=== PATIENT | female | born 2000 | race Caucasian/White ===

== ENCOUNTER 2019-07-20 18:44 | Observation (INO) ==
--- OUTSIDE RECORDS SUMMARY | 2019-07-20 18:48 | External Medical Summary | Continuity of Care Document ---
:2000 Author Name Darvin Hassan, Provider Address Unavailable Unavailable , Care Team Providers Name Role Phone Unavailable Unavailable Unavailable JUAN DAVID LEPE Unavailable Unavailable Problems Active medical history not documented Allergies and Adverse Reactions Allergy history not documented Medications Medications not documented Procedures Procedures not documented Immunizations Immunizations not documented Plan of Treatment Planned Observations Planned Goals not documented Results No Known Results Results not documented Encounters Appointment; [facility], Nursing Station 02-Feb-2019 13:45 Encounter Diagnosis: Problem not documented
[2019-07-20 20:05] LABS: Basophils # (auto) 0.04 K/uL (0-0.2); Basophils % (auto) 0.4 %; Eosinophils # (auto) 0.17 K/uL (0-0.5); Eosinophils % (auto) 1.8 %; Hematocrit (blood only) 38.2 % (37-47); Hemoglobin 13.6 g/dL (12.0-16.0); Immature Granulocytes # (auto) 0.02 K/uL (0.00-0.02); Immature Granulocytes % (auto) 0.2 %; Lymphocytes % (auto) 35.8 %; Mean Corpuscular Hemoglobin 30.8 pg (25-34); Mean Corpuscular Hgb Conc 35.6 g/dL (32-36); Mean Corpuscular Volume 86.6 fL (80-100); Mean Platelet Volume 10.1 fL (7.4-10.4); Monocytes # (auto) 0.71 K/uL (0.11-0.59); Monocytes % (auto) 7.5 %; Neutrophils # (auto) 5.15 K/uL (1.4-6.5); Neutrophils % (auto) 54.3 %; Platelet Count 268 K/uL (130-400); RDW Coefficient of Variation 12.3 % (11.5-14.5); RDW Standard Deviation 39.2 fL (36.4-46.3); Red Blood Count 4.41 M/uL (4.2-5.4); White Blood Count 9.49 K/uL (4.8-10.8)
[2019-07-20 20:21] LABS: Albumin Level 3.8 gm/dl (3.4-5.0); Appearance Urine Clear (Clear); BUN Creatinine Ratio 14.1 (10-20); Calcium 9.4 mg/dl (8.5-10.1); Color Urine Orange; Est GFR (Non-African American) 106.1; Magnesium 1.9 mg/dl (1.8-2.4); Potassium 3.2 mmol/L (3.5-5.1); Specific Gravity Urine 1.013 (1.000-1.030)
[2019-07-20 20:22] LABS: Protein Urine Negative (Negative)
[2019-07-20 20:24] LABS: Bacteria Urine 2+ (Negative); RBC Urine 0-4 /hpf (0-4); Sulfosalicylic Acid Urine Negative (Negative); WBC Urine >30 /hpf (0-5)
[2019-07-20 20:32] LABS: Albumin Globulin Ratio 1.2 (0.9-2); Bilirubin,Total 0.3 mg/dl (0.2-1); Globulin 3.3 gm/dl (2.5-4.0); Thyroid Stimulating Hormone 1.82 uIu/ml (0.300-4.500); Total Protein 7.1 gm/dl (6.4-8.2)
[2019-07-20] MEDS ORDERED: POTASSIUM CHLORIDE 10 MEQ TABCR PO STA (20:33)
[2019-07-20] MEDS ORDERED: cefTRIAXone SODIUM 2,000 MG/70 ML BAG IV STA (20:33)
[2019-07-20] MEDS ORDERED: CEFEPIME 2,000 MG/20 ML VIAL IV STA (20:55)
[2019-07-20] MEDS ORDERED: SODIUM CHLORIDE 0.9% 1000ML 1,000 ML IV ONE (21:42)
--- NOTE | 2019-07-20 21:54 | History & Physical Report ---
Date of Service July 20, 2019 Assessment & Plan (1) UTI due to extended-spectrum beta lactamase (ESBL) producing Escherichia coli: Review of report brought in by patient from [facility] indicates + urine culture from 06/23 with >100,000 ESBL producing e.coli. WBC normal. Patient is tachycardic at 109. UA clouded by recent Azo use. - discontinued cefepime (beta lactam) in favor of IV ertapenum, 1g, daily given that e.coli are ESBL; would recommended 10-14 day course; consider ID consult for IV to PO conversion in light of most recent culture sensitivity report - bolus 1 L of IV normal saline - urine preg ordered - patient's R flank point tenderness unlikely to represent developing pyleo, but continue to monitor Dispo: Med/Surg FEN/GI: Regular diet DVT ppx: patient is low risk and ambulatory, pharmacologic/mechanical ppx not indicated Code: Full (2) Acute hypokalemia: Level 3.2 on admission; supplemented with 40mEQ of oral KCl -repeat BMP in the AM History of Present Illness Primary Care Provider: NO PCP Dahiana is an otherwise healthy 19 yo woman who came to the ED [facility] for evaluation of recurrent UTI symptoms. She was originally diagnosed with a UTI at [facility] on 05/14; culture grew <10,000 luo sensitive e.coli. She was treated with a 3 day course of Bactrim, which she took until completion. Her sy mptoms improved over the course of the next 4 weeks, although never totally resolved. She returned to [facility] for re-evaluation on 06/23, at which time UA was + and she was treated with a course of Macrobid; culture grew out >100,000 ESBL e.coli; sensitive to gentimycin, cefepime, ertapenum and meropenum. She currently reports burning with urination, but denies urinary frequency, urgency or pain. She has been taking Azo for the urinary discomfort. She did have some vaginal itchiness and white, thick discharge prior to her evaluation at [facility] on 06/23, although these symptoms have since resolved. She is sexually active with 1 male partner. The relationship is monogamous; she is on an OCP for control, but does not use barrier protection. No pain with intercourse. She had a PAP with an endocervical prachi/chlam testing in april that was reportedly normal. Her LMP was 2 weeks ago. ED Course: Urine was unable to be fully analyzed as patient had taken azo prior to coming in for evaluation. UA did show +2 bacteria and >30 WBC. Dahiana was given one dose of IV rocephin and one dose IV cefepime. She was given 40mEq of oral KCl. Allergies Allergy/AdvReac Type Severity Reaction Status Date / Time No Known Allergies Allergy Unverified 07/20/19 21:00 Home Medications Home Medications Medication Instructions Recorded Confirmed Type olwuhli-iirjtajeaupfb-kfhongcv 2 tab PO Q6H PRN 07/20/19 07/20/19 History [Excedrin Extra Strength] dextroamphetamine-amphetamine 30 mg PO BID 07/20/19 07/20/19 History [Adderall] lactobacillus combination no.4 0 mmu cells PO DAILY PRN 07/20/19 07/20/19 History [Probiotic] multivitamin 1 tab PO DAILY 07/20/19 07/20/19 History norgestimate-ethinyl estradiol 1 tab PO DAILY 07/20/19 07/20/19 History [Fqt-Ml-Fliupitwi] pumpkin seed extract-soy germ [Azo 2 cap PO UD 07/20/19 07/20/19 History Bladder Control] Past Med/Surg History Medical History No pertinent past medical history Social History Preferred Language: Belgian Communication Ability: Effective 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 Beliefs That Will Affect Care: None Current Living Situation: Other current occupational status: student Other Information That Helps Us Care for You: No Feels Safe at Home: Yes Safety Concerns: Feels Safe At This Time Smoking Status: Never smoker Hx Alcohol Use: Yes Hx Substance Use: No Do you think of yourself as: straight/heterosexual Sexual Activity: has been sexually active within the last 12 months Review of Systems Constitutional: no fever and no chills Genitourinary: + flank pain (R sided); no dysuria, no urinary frequency, no urinary urgency, no abnormal periods, no vaginal discharge, no vaginal odor, no pelvic pain and no painful intercourse burning with urination Physical Exam Constitutional: WD/WN, vitals as above comfortable Eyes: + anicteric sclerae ENMT: external ear and nose normal, oropharynx normal Neck: trachea midline, no thyromegaly Respiratory: normal respiratory effort, lungs clear to auscultation Auscultation: lungs clear to auscultation bilaterally; no crackles, no rales, no rhonchi, no wheezes and no pleural rub Cardiovascular: Rate/Rhythm: regular rhythm and + tachycardic Heart Sounds: normal S1 and normal S2; no murmur Gastrointestinal (Abdomen): normal bowel sounds, soft, nontender, no hepatosplenomegaly No CVA tenderness b/l, although patient did report point tenderness when R flank was palpated Skin: no rashes, warm and dry Psychiatric: A+Ox3, euthymic affect Results & Data Vital Signs (Past 12 Hours) Vital Signs Temp Pulse Resp BP Pulse Ox 07/20/19 18:47 36.7 C 109 H 14 121/77 98 Laboratory Results 07/20/19 07/20/19 07/20/19 Range/Units 19:49 19:49 19:49 WBC 9.49 (4.8-10.8) K/uL RBC 4.41 (4.2-5.4) M/uL Hgb 13.6 (12.0-16.0) g/dL Hct 38.2 (37-47) % MCV 86.6 (80-100) fL MCH 30.8 (25-34) pg MCHC 35.6 (32-36) g/dL RDW Std Deviation 39.2 (36.4-46.3) fL RDW Coeff of Poonam 12.3 (11.5-14.5) % Plt Count 268 (130-400) K/uL MPV 10.1 (7.4-10.4) fL Immature Gran % (Auto) 0.2 % Neut % (Auto) 54.3 % Lymph % (Auto) 35.8 % [place] % (Auto) 7.5 % Eos % (Auto) 1.8 % Baso % (Auto) 0.4 % Immature Gran # (Auto) 0.02 (0.00-0.02) K/uL Neut # (Auto) 5.15 (1.4-6.5) K/uL Lymph # (Auto) 3.40 (1.2-3.4) K/uL [place] # (Auto) 0.71 H (0.11-0.59) K/uL Eos # (Auto) 0.17 (0-0.5) K/uL Baso # (Auto) 0.04 (0-0.2) K/uL Sodium 139 (136-145) mmol/L Potassium 3.2 L (3.5-5.1) mmol/L Chloride 106 (98-107) mmol/L Carbon Dioxide 27 (21-32) mmol/L Anion Gap 6.0 (3-11) BUN 11 (7-18) mg/dl Creatinine 0.80 (0.6-1.2) mg/dl Est Cr Clr Drug Dosing 105.0 ml/min Est GFR ( Amer) 123.0 Est GFR (Non-Af Amer) 106.1 BUN/Creatinine Ratio 14.1 (10-20) Glucose 89 (70-99) mg/dl Calcium 9.4 (8.5-10.1) mg/dl Magnesium 1.9 (1.8-2.4) mg/dl Total Bilirubin 0.3 (0.2-1) mg/dl AST 19 (15-37) U/L ALT 20 (12-78) U/L Alkaline Phosphatase 48 (45-117) U/L Total Protein 7.1 (6.4-8.2) gm/dl Albumin 3.8 (3.4-5.0) gm/dl Globulin 3.3 (2.5-4.0) gm/dl Albumin/Globulin Ratio 1.2 (0.9-2) TSH 1.820 (0.300-4.500) uIu/ml Urine Color [place] Urine Appearance Clear (Clear) Urine pH (4.5-7.5) Ur Specific [place] 1.013 (1.000-1.030) Urine Protein Negative (Negative) Urine Glucose (UA) (Negative) Urine Ketones (Negative) Urine Blood (Negative) Urine Nitrite (Negative) Urine Bilirubin (Negative) Urine Urobilinogen (Negative) Ur Leukocyte Esterase (Negative) Urine RBC 0-4 (0-4) /hpf Urine WBC >30 H (0-5) /hpf Ur Epithelial Cells 5-10 H (0-5) /lpf Urine Bacteria 2+ H (Negative) Medications Administered Current Inpatient Medications Sodium Chloride (Nss 1000ml) 1,000 mls @ 999 mls/hr IV .Q1H1M ONE Stop: 07/20/19 22:42 Ertapenem 1,000 mg/ Sodium (Chloride) 60 mls @ 100 mls/hr IV Q24H RIVKA Stop: 07/30/19 21:44 Code Status & VTE Plan VTE Prophylaxis Plan VTE Prophylaxis will be ordered: No Supervising Physician Co-Signing Physician Notes Patient was seen and examined by me personally. I reviewed the chart, the order s and discussed the case in detail with Dr. Twyla Johnson MD . I read this H&P and agree with its contents to entirety. PG Care Time/CCT Total # of Minutes Spent Total Time Spent with Patient: Total time spent is greater than 50% in coordination of care (as documented) at patient's floor/unit and/or counseling patient: Resident Activity Tracking Resident Involvement: Resident Care Provided Care Provided: Adult Hospital Medicine
[2019-07-20] MEDS: ERTAPENEM SODIUM 1,000 MG in SODIUM CHLORIDE 0.9% 50 ML IV SCH (22:14)
[2019-07-20] MEDS ORDERED: ACETAMINOPHEN 325 MG TAB PO PRN (23:02)
[2019-07-20] MEDS ORDERED: [UNRECOGNIZED DRUG - OTHER] PO SCH (23:02)
--- NOTE | 2019-07-20 23:26 | Emergency Department Note ---
Entered by Brandy Jimenes acting as a scribe for Saman Penny MD History of Present Illness General Chief complaint: Urinary Symptoms Stated complaint: recurrent uti, antibiotic taken-not working Time Seen by Provider: 07/20/19 19:25 Source: patient History of Present Illness Onset (ago): month(s) (05/13/19) 2 Location: pelvis (urinary symptoms) Pain Consistency: + intermittent Maximum Pain Intensity: 4 Quality: + burning (dysuria) and + other (itching) Associated symptoms: + denies other symptoms (vomiting, ), + cough (mild), + headaches and + other (nausea, weight loss, chills, body aches, shaking, blurred vision, feeling like she is going to pass out); no chest pain The patient is a 19 year old female with no PMHx indicated on [employer] who presents to the Emergency Room with complaints of urinary symptoms. The patient explains that at the end of April 2019 she began to experience UTI symptoms including dysuria and frequency. She was seen by a doctor on May 13 and was prescribed Bactrim with some relief. However, she states that her UTI symptoms shortly returned along with new symptoms including bad headaches, body aches, shaking, blurred vision, chills, intermittent abdominal pain and pressure, and feeling like she is going to pass out at times. These symptoms are cyclical and states that she does not have them right now. Very symptoms currently. She returned to the doctor on 06/23/19 and was placed on Macrobid. Since this time, she reports that her symptoms have been intermittent and she states that she noticed she lost 10 lbs in under 1 month. She reports that she takes Excedrin for her headaches and Azo for her UTI symptoms. The patient explains that her UTI symptoms worsened 3 days ago associated with lower back pain prompting her ED visit today. Additionally she includes that she has also been experiencing nausea and a mild cough. Of note, the patient states that her menstrual periods are normal. She also notes that her mother has thyroid problems. She denies vomiting, chest pain, shortness of breath, chance of , and noticeable swelling. The patient offers no additional complaints at this time. Home Medications Home Medications Medication Instructions Recorded Confirmed Type ahxhyet-aifgntobhzshz-iljrliva 2 tab PO Q6H PRN 07/20/19 07/20/19 History [Excedrin Extra Strength] dextroamphetamine-amphetamine 30 mg PO BID 07/20/19 07/20/19 History [Adderall] lactobacillus combination no.4 0 mmu cells PO DAILY PRN 07/20/19 07/20/19 History [Probiotic] multivitamin 1 tab PO DAILY 07/20/19 07/20/19 History norgestimate-ethinyl estradiol 1 tab PO DAILY 07/20/19 07/20/19 History [Fxo-Lh-Mnbkgdqbh] pumpkin seed extract-soy germ [Azo 2 cap PO UD 07/20/19 07/20/19 History Bladder Control] Allergies Allergy/AdvReac Type Severity Reaction Status Date / Time No Known Allergies Allergy Unverified 07/20/19 21:00 Past Med/Surg History Medical History No pertinent past medical history Social History Preferred Language: French Communication Ability: Effective Credit Consultant Required: No Beliefs That Will Affect Care: None Current Living Situation: Other current occupational status: student Other Information That Helps Us Care for You: No Feels Safe at Home: Yes Safety Concerns: Feels Safe At This Time Smoking Status: Never smoker Hx Alcohol Use: Yes Hx Substance Use: No Do you think of yourself as: straight/heterosexual Sexual Activity: has been sexually active within the last 12 months Review of Systems See HPI for pertinent positives & negatives. and A total of 10 systems reviewed and were otherwise negative Physical Exam Vital Signs Vital Signs - 24 hr 07/20/19 18:47 07/20/19 20:02 Temperature 36.7 C Temperature Source Oral Sepsis Recent Fever Within 48 Hours No Sepsis New/Unexplained Change in Mental Status No Sepsis Action Taken by Nursing No Action Required Pulse Rate - Lying 66 Pulse Rate - Sitting 76 Pulse Rate - Standing 85 Pulse Rate 109 H Respiratory Rate 14 Respiratory Depth Normal Blood Pressure - Lying 115/62 Blood Pressure - Sitting 114/74 Blood Pressure- Standing 111/74 Blood Pressure 121/77 Blood Pressure Mean 91 Pulse Oximetry 98 Oxygen Delivery Method Room Air Constitutional: Vital signs reviewed. Eyes: Pupils are equal round reactive to light. Conjunctiva are noninjected. ENT: Pharynx is clear without erythema or exudate. Mucous membranes are moist. Neck supple without meningeal signs. No goiter. Respiratory: Clear to auscultation bilaterally. Breath sounds are equal bilaterally. Cardiovascular: Regular rate and rhythm. No rubs or gallops. GI: Soft, nondistended and nontender. Bowel sounds are present. Musculoskeletal: No peripheral edema. No lower extremity tenderness. No CVA tenderness. Integumentary: No cyanosis. Neurological: The patient is awake and alert. No focal deficits. Psychiatric: Normal affect. Course 1932: Past medical records reviewed. The patient was evaluated in room B06. A complete history and physical exam was performed. 2036: Spoke to patient about test results. 2053: Spoke with Dr. Byers. Infectious Disease who said there is no oral treatment option and that the patient should be admitted. 2105: Spoke with Dr. Almazan, [facility] who will evaluate the patient. I spoke to the patient about culture results and admission. 2109: The patient verbally expressed understanding and agreement of the treatment plan. The patient will be evaluated for further treatment. Administered Medications Ertapenem 1,000 mg/ Sodium (Chloride) 60 mls @ 100 mls/hr IV Q24H RIVKA Stop: 07/30/19 21:44 Last Admin: 07/20/19 22:14 Dose: 100 mls/hr Documented by: [id number] Discontinued Medications Ceftriaxone Sodium (Rocephin) 2,000 mg in 70 mls @ 140 mls/hr IV NOW STA Stop: 07/20/19 21:02 Last Admin: 07/20/19 20:58 Dose: Not Given Documented by: [id number] Cefepime HCl (Maxipime) 2,000 mg in 20 mls @ 5 mls/min IV NOW STA; Protocol Stop: 07/20/19 20:58 Last Admin: 07/20/19 21:10 Dose: 5 mls/min Documented by: [id number] Sodium Chloride (Nss 1000ml) 1,000 mls @ 999 mls/hr IV .Q1H1M ONE Stop: 07/20/19 22:42 Last Admin: 07/20/19 22:18 Dose: 999 mls/hr Documented by: [id number] Potassium Chloride (Klor-Con M10) 40 meq PO NOW STA Stop: 07/20/19 20:34 Last Admin: 07/20/19 21:10 Dose: 40 meq Documented by: [id number] Medical Decision Making Differential Diagnosis Differential diagnosis includes but is not limited to UTI, pyelonephritis, metabolic derangement, hyperthyroidism, anemia Medical Records Attestation: I reviewed the patient's medical records. I did perform a limited focused review of portions of the patient's old chart on the electronic medical record. The patient has had no recent pertinent visits to this hospital. Home Medications Current Medication List: was personally reviewed by me Laboratory Data Attestation: I reviewed the patient's lab results. Result diagrams: 07/20/19 19:49 07/20/19 19:49 Lab Results 07/20/19 07/20/19 07/20/19 Range/Units 19:49 19:49 19:49 WBC 9.49 (4.8-10.8) K/uL RBC 4.41 (4.2-5.4) M/uL Hgb 13.6 (12.0-16.0) g/dL Hct 38.2 (37-47) % MCV 86.6 (80-100) fL MCH 30.8 (25-34) pg MCHC 35.6 (32-36) g/dL RDW Std Deviation 39.2 (36.4-46.3) fL RDW Coeff of Poonam 12.3 (11.5-14.5) % Plt Count 268 (130-400) K/uL MPV 10.1 (7.4-10.4) fL Immature Gran % (Auto) 0.2 % Neut % (Auto) 54.3 % Lymph % (Auto) 35.8 % [place] % (Auto) 7.5 % Eos % (Auto) 1.8 % Baso % (Auto) 0.4 % Immature Gran # (Auto) 0.02 (0.00-0.02) K/uL Neut # (Auto) 5.15 (1.4-6.5) K/uL Lymph # (Auto) 3.40 (1.2-3.4) K/uL [place] # (Auto) 0.71 H (0.11-0.59) K/uL Eos # (Auto) 0.17 (0-0.5) K/uL Baso # (Auto) 0.04 (0-0.2) K/uL Sodium 139 (136-145) mmol/L Potassium 3.2 L (3.5-5.1) mmol/L Chloride 106 (98-107) mmol/L Carbon Dioxide 27 (21-32) mmol/L Anion Gap 6.0 (3-11) BUN 11 (7-18) mg/dl Creatinine 0.80 (0.6-1.2) mg/dl Est Cr Clr Drug Dosing 105.0 ml/min Est GFR ( Amer) 123.0 Est GFR (Non-Af Amer) 106.1 BUN/Creatinine Ratio 14.1 (10-20) Glucose 89 (70-99) mg/dl Calcium 9.4 (8.5-10.1) mg/dl Magnesium 1.9 (1.8-2.4) mg/dl Total Bilirubin 0.3 (0.2-1) mg/dl AST 19 (15-37) U/L ALT 20 (12-78) U/L Alkaline Phosphatase 48 (45-117) U/L Total Protein 7.1 (6.4-8.2) gm/dl Albumin 3.8 (3.4-5.0) gm/dl Globulin 3.3 (2.5-4.0) gm/dl Albumin/Globulin Ratio 1.2 (0.9-2) TSH 1.820 (0.300-4.500) uIu/ml Urine Color [place] Urine Appearance Clear (Clear) Urine pH (4.5-7.5) Ur Specific [place] 1.013 (1.000-1.030) Urine Protein Negative (Negative) Urine Glucose (UA) (Negative) Urine Ketones (Negative) Urine Blood (Negative) Urine Nitrite (Negative) Urine Bilirubin (Negative) Urine Urobilinogen (Negative) Ur Leukocyte Esterase (Negative) Urine RBC 0-4 (0-4) /hpf Urine WBC >30 H (0-5) /hpf Ur Epithelial Cells 5-10 H (0-5) /lpf Urine Bacteria 2+ H (Negative) Blood Pressure Blood Pressure Findings: Elevated blood pressure Blood Pressure Disposition: elevated BP felt to be situational MDM Narrative I did evaluate the patient as noted above. The patient is presenting with urinary symptoms. She has had 2 courses of antibiotics including Macrobid and Bactrim. She has recurring urinary symptoms and has cyclical systemic symptoms as described above including malaise, headaches, dizziness and weight loss. IV access was established. I did order a urine analysis. She does have a significant number of WBCs and bacteria. The rest of the UA is uninterpretable due to her taking Azo. I did order and review the patient's blood work as noted in the electronic medical record. Her white count is not elevated. She is not anemic. She is hypokalemic. She was given oral potassium. TSH is normal. Originally my plan was to treat her with ceftriaxone and Omnicef. I had discussed this with our ED pharmacist here. After discussion with her, she told me that cultures were performed at [facility]. I therefore obtain cultures from the [facility] and her initial culture grew out E. coli which was pansensitive. Her second culture from June 23 showed E. coli ESBL. I did speak to the pharmacist as well as Dr. Byers of infectious disease. She stated that we would have to hospitalize her for IV antibiotics as there is no oral option. I did discuss this with the patient. She was agreeable to hospitalization. I did treat her with cefepime based on her culture. I did discuss case with the hospitalist and case management associate. Impression & Plan Headache, Unintentional weight loss, Acute hypokalemia, Dizziness, UTI due to extended-spectrum beta lactamase (ESBL) producing Escherichia coli Discharge Plan Visit Data *Final* Discharge Date/Time: 07/20/19 22:18 Chief Complaint: Urinary Symptoms Stated Complaint: recurrent uti, antibiotic taken-not working ED Provider: Saman Penny Discharge Problem: Headache, Unintentional weight loss, Acute hypokalemia, Dizziness, UTI due to extended-spectrum beta lactamase (ESBL) producing Escherichia coli Patient Disposition: Being Evaluated by Hospitalist Discharge Instructions Interventions: ED Discharge Assessment Last Done: 07/20/19 22:18 Discharge Problem: Headache Qualifiers: Headache type: unspecified Headache chronicity pattern: episodic headache Intractability: not intractable Qualified Code(s): R51 - Headache The scribe's documentation has been prepared under my direction and personally reviewed by me in its entirety. I confirm that the note above accurately reflects all work, treatment, procedures, and medical decision making performed by me.
[2019-07-21 05:23] LABS: Basophils # (auto) 0.04 K/uL (0-0.2); Basophils % (auto) 0.5 %; Eosinophils # (auto) 0.17 K/uL (0-0.5); Hematocrit (blood only) 39.2 % (37-47); Hemoglobin 13.5 g/dL (12.0-16.0); Immature Granulocytes # (auto) 0.01 K/uL (0.00-0.02); Immature Granulocytes % (auto) 0.1 %; Lymphocytes # (auto) 3.12 K/uL (1.2-3.4); Lymphocytes % (auto) 35.9 %; Mean Corpuscular Hemoglobin 30.3 pg (25-34); Mean Corpuscular Hgb Conc 34.4 g/dL (32-36); Mean Corpuscular Volume 88.1 fL (80-100); Mean Platelet Volume 10.6 fL (7.4-10.4); Monocytes # (auto) 0.73 K/uL (0.11-0.59); Monocytes % (auto) 8.4 %; Neutrophils # (auto) 4.62 K/uL (1.4-6.5); Neutrophils % (auto) 53.1 %; Platelet Count 267 K/uL (130-400); RDW Coefficient of Variation 12.3 % (11.5-14.5); RDW Standard Deviation 39.5 fL (36.4-46.3); Red Blood Count 4.45 M/uL (4.2-5.4); White Blood Count 8.69 K/uL (4.8-10.8)
[2019-07-21 06:12] LABS: BUN Creatinine Ratio 13.5 (10-20); Calcium 8.9 mg/dl (8.5-10.1); Est GFR (Non-African American) 100.1
--- NOTE | 2019-07-21 15:13 | Hospitalist Progress Note ---
Date of Service July 21, 2019 Assessment & Plan (1) UTI due to extended-spectrum beta lactamase (ESBL) producing Escherichia coli: Continue ertapenem. Urine culture pending sensitivity. Positive for E. coli ESBL. Will do renal sonogram to rule out possibly kidney stone or other infection that would cause recurrent urinary tract infections. Present on Admission?: Yes (2) Acute hypokalemia: Resolved Present on Admission?: Yes Subjective Patient seen and examined at the bedside. She says she feels better today and less dysuria. She reports having recurrent urinary tract infections for the past 6 months and she does not know the reason why. This time she grew ESBL E. coli she was started on ertapenem. Patient denies fever, chills, chest pain, shortness of breath, abdominal pain, frequency urgency. Review of Systems Review of Systems: All systems reviewed & are unremarkable except as noted in HPI & below Physical Exam Constitutional: WD/WN, vitals as above well developed Eyes: PERRL, conjunctivae normal, anicteric sclerae ENMT: external ear and nose normal, oropharynx normal Neck: trachea midline, no thyromegaly Respiratory: normal respiratory effort, lungs clear to auscultation Cardiovascular: RRR, no murmur, no edema Gastrointestinal (Abdomen): normal bowel sounds, soft, nontender, no hepatosplenomegaly Musculoskeletal: no cyanosis or clubbing, extremities motor strength 5/5 Skin: no rashes, warm and dry Neurologic: patellar DTR's 2+ bilat, sensation intact Psychiatric: A+Ox3, euthymic affect Lymphatic: no cervical or axillary lymphadenopathy Results & Data Vital Signs (Past 12 Hours) Vital Signs Temp Pulse Resp BP Pulse Ox 07/21/19 07:23 36.9 C 70 16 113/69 97 PG Care Time/CCT Total # of Minutes Spent Total Time Spent with Patient: Total time spent is greater than 50% in coordination of care (as documented) at patient's floor/unit and/or counseling patient:
--- NOTE | 2019-07-21 17:34 | Ultrasound Report ---
US renal/blad retro comp HISTORY: Infection. Flank pain. recurrent UTI COMPARISON: None. FINDINGS: Right kidney: Maximum dimension 11.9 cm. No evidence for hydronephrosis. Normal corticomedullary diff erentiation and cortical thickness. Left kidney: Maximum dimension 11.2 cm. No evidence for hydronephrosis. Normal corticomedullary diff erentiation and cortical thickness. Bladder: No bladder wall thickening. The bilateral ureteral jets were identified. IMPRESSION: Normal renal ultrasound. The above report was generated using voice recognition software. It may contain grammatical, syntax or spelling errors. Electronically signed by: Jas Alvares M.D. 07/21/2019 5:33 PM
[2019-07-21] MEDS: ERTAPENEM SODIUM 1,000 MG in SODIUM CHLORIDE 0.9% 50 ML IV SCH (21:07)
[2019-07-22] MEDS ORDERED: CLOTRIMAZOLE VAGINAL CR 7 APPLN/45 GM TUBE PV SCH (09:00)
[2019-07-22] MEDS: LACTOBACILLUS ACIDOPHILUS (FLORANEX) TAB PO SCH ×2 (09:43→11:48)
[2019-07-22] MEDS ORDERED: Nursing to Pharmacy Communication ONE (09:56)
[2019-07-22] MEDS ORDERED: ERTAPENEM SODIUM 1,000 MG in SODIUM CHLORIDE 0.9% 50 ML IV SCH ×2 (10:15→22:00)
--- NOTE | 2019-07-22 13:03 | Infectious Disease Consult ---
Date of Consultation July 22, 2019 Assessment & Plan (1) Acute UTI: Patient with urinary tract infection, now with fully sensitive E. coli, worry about possibility of right pyelonephritis given flank pain and systemic symptoms. Have ordered CT scan of the abdomen and pelvis with IV contrast to better define process. As long as no significant complicating things are seen on CT scan, feel the patient could be discharged on oral antibiotics and would recommend cefdinir 300 mg twice daily for at least 2 to [address] findings. Would like to see patient back in the office in 1 to 2 weeks and follow-up if possible. Case discussed at length with patient and her mother and they appeared satisfied with this approach. If symptoms were to recur after treatment, will need urologic follow-up to evaluate for possible anatomic problems. (2) Escherichia coli infection: History of Present Illness Reason for Consultation: E. coli ESBL Attending Physician: Celso Torres MD History of Present Illness 19-year-old female in prior good health who first developed symptoms of lower urinary tract infection with dysuria, frequency, and urgency at the end of April. She was seen at a walk-in clinic and diagnosed with a E. coli urinary tract infection and given 3-day course of Bactrim. Symptoms improved, but then returned. She subsequent was found to have a resistant E. coli and given 7 days of Macrodantin, but has continued to complain of lower urinary tract symptoms, associated with intermittent right flank pain, with shaking chills, headache, and ill feeling. She finally was admitted to the hospital and now found to have positive culture for a fully sensitive E. coli. She has been on IV cefepime with clinical improvement. She has had ultrasound which was unremarkable. No prior history of urinary tract infections, no history of kidney stones. Patient is sexually active. Allergies Allergy/AdvReac Type Severity Reaction Status Date / Time No Known Allergies Allergy Unverified 07/20/19 21:00 Home Medications Home Medications Medication Instructions Recorded Confirmed Type jjksuxd-ducxexihnezyq-syewfpia 2 tab PO Q6H PRN 07/20/19 07/20/19 History [Excedrin Extra Strength] dextroamphetamine-amphetamine 30 mg PO BID 07/20/19 07/20/19 History [Adderall] lactobacillus combination no.4 0 mmu cells PO DAILY PRN 07/20/19 07/20/19 History [Probiotic] multivitamin 1 tab PO DAILY 07/20/19 07/20/19 History norgestimate-ethinyl estradiol 1 tab PO DAILY 07/20/19 07/20/19 History [Dlv-Fg-Oigqrkqsm] pumpkin seed extract-soy germ [Azo 2 cap PO UD 07/20/19 07/20/19 History Bladder Control] Patient History Medical History No pertinent past medical history Social History Preferred Language: Malawian Communication Ability: Effective 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 Beliefs That Will Affect Care: None Current Living Situation: Other current occupational status: student Other Information That Helps Us Care for You: No Feels Safe at Home: Yes Safety Concerns: Feels Safe At This Time Smoking Status: Never smoker Hx Alcohol Use: Yes Hx Substance Use: No Do you think of yourself as: straight/heterosexual Sexual Activity: has been sexually active within the last 12 months Review of Systems Review of Systems: All systems reviewed & are unremarkable except as noted in HPI & below Physical Exam Constitutional: WD/WN, vitals as above comfortable; no acute distress Eyes: PERRL, conjunctivae normal, anicteric sclerae ENMT: external ear and nose normal, oropharynx normal Neck: trachea midline, no thyromegaly neck nontender Respiratory: normal respiratory effort, lungs clear to auscultation normal percussion; does not use accessory muscles Cardiovascular: Rate/Rhythm: regular rate and regular rhythm Heart Sounds: normal S1 and normal S2; no gallop, no murmur and no cardiac rub Vessels: normal peripheral pulses; no JVD Gastrointestinal (Abdomen): Inspection/Auscultation: abdomen normal to inspection and normal bowel sounds Percussion/Palpation: + abdomen tender (Mild right CVAT); no hepatosplenomegaly and no abdominal mass Musculoskeletal: no cyanosis or clubbing, extremities motor strength 5/5 Spine: thoracic spine normal to inspection and lumbar spine normal to inspection; no cervical spinal tenderness Skin: no rashes, warm and dry normal turgor; no lesions Neurologic: patellar DTR's 2+ bilat, sensation intact no focal motor deficits Psychiatric: A+Ox3, euthymic affect Orientation: cooperative Lymphatic: no cervical or axillary lymphadenopathy no inguinal lymphadenopathy Results & Data Vital Signs (Past 12 Hours) Vital Signs Temp Pulse Resp BP Pulse Ox 07/22/19 07:15 36.6 C 74 16 99/64 L 98 Laboratory Results Laboratory Results - last 48 hr 07/20/19 07/20/19 07/20/19 19:49 19:49 19:49 WBC 9.49 RBC 4.41 Hgb 13.6 Hct 38.2 MCV 86.6 MCH 30.8 MCHC 35.6 RDW Std Deviation 39.2 RDW Coeff of [place] 12.3 Plt Count 268 MPV 10.1 Immature Gran % (Auto) 0.2 Neut % (Auto) 54.3 Lymph % (Auto) 35.8 [place] % (Auto) 7.5 Eos % (Auto) 1.8 Baso % (Auto) 0.4 Immature Gran # (Auto) 0.02 Neut # (Auto) 5.15 Lymph # (Auto) 3.40 [place] # (Auto) 0.71 H Eos # (Auto) 0.17 Baso # (Auto) 0.04 Sodium 139 Potassium 3.2 L Chloride 106 Carbon Dioxide 27 Anion Gap 6.0 BUN 11 Creatinine 0.80 Est Cr Clr Drug Dosing 105.0 Est GFR ( Amer) 123.0 Est GFR (Non-Af Amer) 106.1 BUN/Creatinine Ratio 14.1 Glucose 89 Calcium 9.4 Magnesium 1.9 Total Bilirubin 0.3 AST 19 ALT 20 Alkaline Phosphatase 48 Total Protein 7.1 Albumin 3.8 Globulin 3.3 Albumin/Globulin Ratio 1.2 TSH 1.820 Urine Color [place] Urine Appearance Clear Urine pH Ur Specific [place] 1.013 Urine Protein Negative Urine Glucose (UA) Urine Ketones Urine Blood Urine Nitrite Urine Bilirubin Urine Urobilinogen Ur Leukocyte Esterase Urine RBC 0-4 Urine WBC >30 H Ur Epithelial Cells 5-10 H Urine Bacteria 2+ H 07/21/19 07/21/19 04:49 04:49 WBC 8.69 RBC 4.45 Hgb 13.5 Hct 39.2 MCV 88.1 MCH 30.3 MCHC 34.4 RDW Std Deviation 39.5 RDW Coeff of [place] 12.3 Plt Count 267 MPV 10.6 H Immature Gran % (Auto) 0.1 Neut % (Auto) 53.1 Lymph % (Auto) 35.9 [place] % (Auto) 8.4 Eos % (Auto) 2.0 Baso % (Auto) 0.5 Immature Gran # (Auto) 0.01 Neut # (Auto) 4.62 Lymph # (Auto) 3.12 [place] # (Auto) 0.73 H Eos # (Auto) 0.17 Baso # (Auto) 0.04 Sodium 139 Potassium 4.0 D Chloride 106 Carbon Dioxide 26 Anion Gap 7.0 BUN 11 Creatinine 0.84 Est Cr Clr Drug Dosing 100.0 Est GFR ( Amer) 116.0 Est GFR (Non-Af Amer) 100.1 BUN/Creatinine Ratio 13.5 Glucose 96 Calcium 8.9 Magnesium Total Bilirubin AST ALT Alkaline Phosphatase Total Protein Albumin Globulin Albumin/Globulin Ratio TSH Urine Color Urine Appearance Urine pH Ur Specific [place] Urine Protein Urine Glucose (UA) Urine Ketones Urine Blood Urine Nitrite Urine Bilirubin Urine Urobilinogen Ur Leukocyte Esterase Urine RBC Urine WBC Ur Epithelial Cells Urine Bacteria Diagnostic Findings Microbiology 07/20/19 19:49 Urine,Clean Catch Urine Culture - Final Escherichia coli US renal/blad retro comp HISTORY: Infection. Flank pain. recurrent UTI COMPARISON: None. FINDINGS: Right kidney: Maximum dimension 11.9 cm. No evidence for hydronephrosis. Normal corticomedullary differentiation and cortical thickness. Left kidney: Maximum dimension 11.2 cm. No evidence for hydronephrosis. Normal corticomedullary differentiation and cortical thickness. Bladder: No bladder wall thickening. The bilateral ureteral jets were identified. IMPRESSION: Normal renal ultrasound. The above report was generated using voice recognition software. It may contain grammatical, syntax or spelling errors. PG Care Time/CCT Total # of Minutes Spent Total Time Spent with Patient: Total time spent is greater than 50% in coordination of care (as documented) at patient's floor/unit and/or counseling patient:
[2019-07-22] MEDS ORDERED: IOVERSOL 100ml IV PRN (13:19)
--- NOTE | 2019-07-22 13:35 | CT Scan Report ---
CT abd pelvis IV con only CLINICAL HISTORY: Right-sided abdominal pain. Suspected pyelonephritis. COMPARISON STUDY: Ultrasound study dated 07/21/2019 TECHNIQUE: The patient was scanned in a dynamic helical fashion during intravenous administration of 94 cc of Optiray 320. A dose lowering technique was utilized adhering to the principles of ALARA. CT DOSE: 298.20 mGy.cm FINDINGS: Lower chest: The heart is normal in size and configuration, without pericardial effusion. The lung ba ses and pleural spaces are clear. Liver: The contrast-enhanced liver is normal in size, contour, and attenuation. There is no intrahepa tic biliary ductal dilatation. The hepatic veins and portal veins are patent. Gallbladder: Unremarkable. Spleen: Normal in size and attenuation. Pancreas: Unremarkable. Adrenal glands: Unremarkable. Kidneys: There is symmetric renal cortical enhancement. The kidneys are normal in size without hydron ephrosis. No renal calculi are visualized. There are no perinephric fluid collections. There is no ev idence of renal abscess. Bowel: There are no transition zones indicate bowel obstruction. The appendix appears normal. There i s no acute diverticulitis. There is a debris-filled stomach. There is mild to moderate stool within t he colon. Peritoneum: There is no intraperitoneal free air or abdominal ascites. Vasculature: The abdominal aorta is normal in course and caliber. Adenopathy: None. Pelvic viscera: The bladder, and pelvic viscera are unremarkable. Skeletal structures: No destructive osseous lesions are seen. IMPRESSION: 1. No acute intra-abdominal or pelvic findings 2. No evidence of renal abscess. No evidence of hydronephrosis. No calculi identified. 3. No evidence of bowel obstruction. No evidence of free air. Normal appendix. Electronically signed by: Carson Simms M.D. 07/22/2019 1:34 PM
--- NOTE | 2019-07-22 16:45 | Hospitalist Progress Note ---
Date of Service July 22, 2019 Assessment & Plan (1) UTI due to extended-spectrum beta lactamase (ESBL) producing Escherichia coli: Patient feels well today and requested to go home. She states that she missed many classes and she is behind. Patient reports that she feels much better today. Her appetite is improved and her suprapubic pain and dysuria is resolved. Urine culture grew E. coli pansensitive. Patient was started on ertapenem during this hospital stay. CT scan of the abdomen pelvis is negative. The case discussed with Dr. Caleb Valencia infectious disease specialist who recommended to start patient on cefdinir 300 mg p.o. twice a day for 3 weeks and to treat her for pyelonephritis in fact rather than complicated urinary tract infection. Per patient history there were episodes when she had fever chills which were most likely associated with pyelonephritis. Appears that pyelonephritis was never treated completely. All of information is discussed with patient and her mother who was at her bedside. Patient needs to follow-up with Dr. Valencia in 1 to 2 weeks. (2) Acute hypokalemia: Resolved Subjective Patient seen and examined at the bedside. She says she feels better today and less dysuria. She reports having recurrent urinary tract infections for the past 6 months and she does not know the reason why. This time she grew E. coli pansensitive. Patient was started on ertapenem during this hospital stay. CT scan of the abdomen pelvis is negative. The case discussed with Dr. Caleb Valencia infectious disease specialist who recommended to start patient on cefdinir 300 mg p.o. twice a day for 3 weeks and to treat her for pyelonephritis in fact rather than complicated urinary tract infection. Per patient history there were episodes when she had fever chills which were most likely associated with pyelonephritis. Appears that pyelonephritis was never treated completely. All of information is discussed with patient and her mother who was at her bedside. Patient needs to follow-up with Dr. Valencia in 1 to 2 weeks. Patient denies fever, chills, chest pain, shortness of breath, abdominal pain, frequency urgency. Review of Systems Review of Systems: All systems reviewed & are unremarkable except as noted in HPI & below Physical Exam Constitutional: WD/WN, vitals as above well developed Eyes: PERRL, conjunctivae normal, anicteric sclerae ENMT: external ear and nose normal, oropharynx normal Neck: trachea midline, no thyromegaly Respiratory: normal respiratory effort, lungs clear to auscultation Cardiovascular: RRR, no murmur, no edema Gastrointestinal (Abdomen): normal bowel sounds, soft, nontender, no hepatosplenomegaly Musculoskeletal: no cyanosis or clubbing, extremities motor strength 5/5 Skin: no rashes, warm and dry Neurologic: patellar DTR's 2+ bilat, sensation intact Psychiatric: A+Ox3, euthymic affect Lymphatic: no cervical or axillary lymphadenopathy Results & Data Vital Signs (Past 12 Hours) Vital Signs Temp Pulse Resp BP Pulse Ox 07/22/19 16:35 36.8 C 96 H 16 109/66 97 07/22/19 15:24 36.8 C 96 H 16 109/66 97 07/22/19 07:15 36.6 C 74 16 99/64 L 98 PG Care Time/CCT Total # of Minutes Spent Total Time Spent with Patient: Total time spent is greater than 50% in coordination of care (as documented) at patient's floor/unit and/or counseling patient:
--- NOTE | 2019-07-22 16:57 | Discharge Summary ---
Date of Service July 22, 2019 Admission HPI Per Admitting Provider Dahiana is an otherwise healthy 19 yo woman who came to the ED [facility] for evaluation of recurrent UTI symptoms. She was originally diagnosed with a UTI at [facility] on 05/14; culture grew <10,000 luo sensitive e.coli. She was treated with a 3 day course of Bactrim, which she took until completion. Her symptoms improved over the course of the next 4 weeks, although never totally resolved. She returned to [facility] for re-evaluation on 06/23, at which time UA was + and she was treated with a course of Macrobid; culture grew out >100,000 ESBL e.coli; sensitive to gentimycin, cefepime, ertapenum and meropenum. She currently reports burning with urination, but denies urinary frequency, urgency or pain. She has been taking Azo for the urinary discomfort. She did have some vaginal itchiness and white, thick discharge prior to her evaluation at [facility] on 06/23, although these symptoms have since resolved. She is sexually active with 1 male partner. The relationship is monogamous; she is on an OCP for control, but does not use barrier protection. No pain with intercourse. She had a PAP with an endocervical prachi/chlam testing in april that was reportedly normal. Her LMP was 2 weeks ago. ED Course: Urine was unable to be fully analyzed as patient had taken azo prior to coming in for evaluation. UA did show +2 bacteria and >30 WBC. Dahiana was given one dose of IV rocephin and one dose IV cefepime. She was given 40mEq of oral KCl. Principal Diagnosis none Discharge Exam Constitutional WD/WN, vitals as above well developed Eyes PERRL, conjunctivae normal, anicteric sclerae ENMT external ear and nose normal, oropharynx normal Neck trachea midline, no thyromegaly Respiratory normal respiratory effort, lungs clear to auscultation Cardiovascular RRR, no murmur, no edema Gastrointestinal (Abdomen) normal bowel sounds, soft, nontender, no hepatosplenomegaly Musculoskeletal no cyanosis or clubbing, extremities motor strength 5/5 Skin no rashes, warm and dry Neurologic patellar DTR's 2+ bilat, sensation intact Psychiatric A+Ox3, euthymic affect Lymphatic no cervical or axillary lymphadenopathy Discharge Data Allergies Allergy/AdvReac Type Severity Reaction Status Date / Time No Known Allergies Allergy Unverified 07/20/19 21:00 Consultations 07/20/19 21:06 ED Decision to Admit Stat 07/22/19 08:36 Consult Infectious Diseases Routine Ordered Studies 07/21/19 17:00 US renal/blad retro comp Stat 07/22/19 12:52 CT abd pelvis IV con only Urgent Hospital Course (1) UTI due to extended-spectrum beta lactamase (ESBL) producing Escherichia coli: Patient feels well today and requested to go home. She states that she missed many classes and she is behind. Patient reports that she feels much better today. Her appetite is improved and her suprapubic pain and dysuria is resolved. Urine culture grew E. coli pansensitive. Patient was started on ertapenem during this hospital stay. CT scan of the abdomen pelvis is negative. The case discussed with Dr. Caleb Valencia infectious disease specialist who recommended to start patient on cefdinir 300 mg p.o. twice a day for 3 weeks and to treat her for pyelonephritis in fact rather than complicated urinary tract infection. Per patient history there were episodes when she had fever chills which were most likely associated with pyelonephritis. Appears that pyelonephritis was never treated completely. All of information is discussed with patient and her mother who was at her bedside. Patient needs to follow-up with Dr. Valencia in 1 to 2 weeks. (2) Acute hypokalemia: Resolved Total Time Total Time Spent Total Time Spent (In Minutes): over 30 min Discharge Plan Discharge Items Patient Disposition: Home - Self-Care Reason For Visit: UTI Discharge Diagnosis: E.Coli Condition on Discharge: Good Activity: Resume your previous activity Non-emergency contact: Primary Care Provider and Specialist Call non-emergency contact if: you have any medication questions, your symptoms worsen, your pain is not controlled, your pain is worsening, your pain is unusual for you, your pain is concerning for you, you have a fever, your temperature is above 101, your temperature is above 101.5 and your wound has increased redness Follow-up/Referrals: Sabino Vaelncia MD [Physician] - 08/03/19 10:30 am (Please, follow up at [facility] Infectious Disease Office with Dr. Valencia on SaturdayAugust 03 at 10:30 am. *The office is located in [address] of [facility], next to this hospital. *If you need to change this appointment, call the office at [phone].) Jeannine Sexton MD [Primary Care Provider] - 07/28/19 2:20 pm (Please, follow up at [facility] with Dr. Jeannine Sexton on SaturdayJuly 28 at 2:20 pm. *If you need to change this appointment, call the office at [phone].) Diet: Regular Addtl Attending Provider Instructions: Please follow up with PCP within 7 days. Follow up with infectious diseases specialist in 1-2 weeks. You will start Cefdinir 300 mg PO BID for 3 weeks per recommendation. Pending Studies at Discharge: No Stand-Alone Forms: My [facility] hike, Smoking Cessation Medications and DC Order Prescriptions: New clotrimazole 1 % Cream 1 applic vaginal DAILY Qty: 1 RF: 0 Lactobacillus acidoph-L.bulgar [Floranex] 1 million cell Tablet 4 tab PO QIDM Qty: 60 RF: 0 cefdinir 300 mg capsule 300 mg PO BID 21 Days Qty: 42 RF: 0 Continued multivitamin Tablet 1 tab PO DAILY RF: 0 dextroamphetamine-amphetamine [Adderall] 30 mg Tablet 30 mg PO BID RF: 0 Excedrin Extra Strength 250-250-65 mg Tablet 2 tab PO Q6H PRN (Reason: Pain) RF: 0 norgestimate-ethinyl estradiol [Noi-Hw-Xemkjichk] 0.18/0.215/0.25 mg-25 mcg Tablet 1 tab PO DAILY RF: 0 Azo Bladder Control 300 mg Capsule 2 cap PO UD RF: 0 Discontinued Probiotic 3 billion cell Capsule PO DAILY PRN (Reason: GETTING SICK) RF: 0 Discharge Orders: Discharge Order (Routine); Ordered 07/22/19 Ordered By: Celso Hartman/Other Patient Handouts: Cefdinir Oral capsule, UTI, ED UTI Pyelonephritis Female Admission Data Admit Date/Time: 07/20/19 21:48 Attending Provider: Celso Torres Admit Provider: Twyla Johnson Primary Care Provider: Jeannine Sexton Other Providers: Keanu Almazan ; Ashlyn Mcclain Jennifer Other Interventions: Discharge Summary Assessment (RN) Last Done: 07/22/19 16:35 Supervising Physician Co-Signing Physician Notes Patient was seen and examined by me personally. I reviewed the chart, the orders and discussed the case in detail with Dr. Twyla Johnson MD . I read this H&P and agree with its contents to entirety.
== END 2019-07-22 17:02 | disposition home or self-care (01) ==
LOC: 3W 18:44 → ED 18:44 → SUATTDRO 21:48 → 3W 22:18